=== PATIENT | female | born 1980 | race Caucasian/White ===

== ENCOUNTER 2019-07-30 12:10 | Observation (INO) | payer BC ==
[2019-07-30] MEDS ORDERED: NS 0.9% 1000 ML** 1,000 ML IV.FLUID IV ONE (12:47)
[2019-07-30] MEDS ORDERED: Ketorolac INJ* 30 MG/ML 1 ML VIAL IV ONE (12:47)
[2019-07-30] MEDS ORDERED: Piperacillin/Tazobac ADVAN(*) 3.375 GM in NS 0.9% 100 ML* 100 ML IVPB ONE (12:47)
--- NOTE | 2019-07-30 13:49 | ED ---
Complex/Multi-Sys Presentation - HPI Summary HPI Summary: Patient is a 38 y/o F presenting to [facility] with complaints of fever, LLQ pain, nausea, diarrhea, near syncope, lower left back pain. She states that she was evaluated by PCP Chucky Cordero earlier today, 07/30/19, in her office for URI Sx. Patient has had a dry cough since four days ago, 07/27/19. Patient has had flu shot and denies sore throat, ear ache, dysuria, and increased frequency of urination. She has no UTI Hx. Patient states that she was not noted to have a fever at PCP office, but in ED, she has temp of 101.1 F. She states that around an hour after leaving PCP's office, she developed LLQ pain. Patient reports she became nauseous, diaphoretic, and near syncopal. She states that she had a few BMs and laid on the couch. Shortly afterwards, she went to bathroom again and had an episode of diarrhea. Patient went back to lie down and states that she had onset of rigors and chills. Patient called her , who took her to ED. In the room, patient appears flushed. She notes that she has some left lower back pain that is rated 1-2/10. FMHx of cancer and stroke is reported. She states that she never smoked tobacco, endorses rare alcohol usage, but denies substance usage. 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 Home medications and allergies are reviewed. In room, vitals BP 127/61, o2 99, pulse 96. Home Medications Multivitamins/Minerals TAB* [Theragran/minerals TAB*] 1 tab PO DAILY 07/30/19 [ History Confirmed 07/30/19] Allergies Allergy/AdvReac Type Severity Reaction Status Date / Time Gadolinium-Containing Allergy Hives Verified 07/30/19 12:14 Contrast Medi - History Of Current Complaint Chief Complaint: EDAbdPain Time Seen by Provider: 07/30/19 12:45 Hx Obtained From: Patient Onset/Duration: Gradual Onset, Still Present Timing: Constant Severity Currently: Mild Severity Initially: Moderate Location: Pain At: - LLQ and left lower back Character: Dull Aggravating Factor(s): nothing Alleviating Factor(s): nothing Associated Signs And Symptoms: Positive: Syncope - near syncope, Cough, Nausea, Vomiting, Diarrhea, Back Pain, Fever, Diaphoresis, Other - rigors, and chills Related History: Recent Illness - URI - Allergies/Home Medications Allergies/Adverse Reactions: Allergies Allergy/AdvReac Type Severity Reaction Status Date / Time Gadolinium-Containing Allergy Hives Verified 07/30/19 12:14 Contrast Medi Home Medications: Home Medications Multivitamins/Minerals TAB* [Theragran/minerals TAB*] 1 tab PO DAILY 07/30/19 [ History Confirmed 07/30/19] PMH/Surg Hx/FS Hx/Imm Hx Previously Healthy: No Endocrine/Hematology History: Denies: Hx Diabetes Cardiovascular History: Denies: Hx Hypertension, Hx Pacemaker/ICD History: Denies: Hx Renal Disease Sensory History: Denies: Hx Hearing Aid Neurological History: Reports: Other Neuro Impairments/Disorders - possible multiple sclerosis, being evaluated Psychiatric History: Denies: Hx Panic Disorder - Surgical History Surgical History: Yes Surgery Procedure, Year, and Place: TONSILS, 2 SURGERIES FOR LAZY EYE Infectious Disease History: No Infectious Disease History: Denies: Traveled Outside the [place] in Last 30 Days - Family History Known Family History: Positive: Other - stroke, [place] - Social History Lives: With Family Alcohol Use: Rare Substance Use Type: Reports: None Hx Tobacco Use: No Smoking Status (MU): Never Smoked Tobacco Review of Systems Constitutional: Other - positive - rigors Positive: Fever, Chills, Skin Diaphoresis Negative: Sore Throat, Ear Ache Cardiovascular: Negative Positive: Cough - dry Positive: Abdominal Pain, Vomiting, Diarrhea, Nausea Negative: dysuria, frequency - increased Musculoskeletal: Other - positive - lower left back pain Skin: Negative Positive: Syncope - NEAR Psychological: Normal All Other Systems Reviewed And Are Negative: Yes Physical Exam - Summary Physical Exam Summary: Appearance: Ill-appearing, minimal pain distress, well-nourished, flushed appearance Skin: Warm, color reflects adequate perfusion, dry Head: Normal Head/Face inspection, atraumatic Eyes: Conjunctiva clear ENT: Nasal congestion noted, no pharyngeal erythema or tonsilar enlargement, TM' s clear, mucosal membranes moist Neck: Supple, no nodes, no JVD Respiratory: decreased breath sounds throughout, scattered rhonchi, no respiratory distress Cardio: tachycardic, No murmur, pulses normal, brisk capillary refill Abdomen: Soft, minimal LLQ tenderness noted, no guarding, no rebound, no masses , non-distended, no CVA tenderness Bowel sounds: Present Musculoskeletal: Strength Intact/ROM intact, no calf tenderness, no edema. Psychological: Normal Neuro: Alert, muscle tone normal, no focal deficit Triage Information Reviewed: Yes Vital Signs On Initial Exam: Initial Vitals Temp Pulse Resp BP Pulse Ox 101.1 F 123 16 128/75 99 07/30/19 12:12 07/30/19 12:12 07/30/19 12:12 07/30/19 12:12 07/30/19 12:12 Vital Signs Reviewed: Yes Procedures - Sedation Patient Received Moderate/Deep Sedation with Procedure: No Diagnostics - Vital Signs Vital Signs Temp Pulse Resp BP Pulse Ox 07/30/19 13:16 92 127/61 98 07/30/19 13:15 95 97 07/30/19 12:12 101.1 F 123 16 128/75 99 - Laboratory Result Diagrams: 07/31/19 06:41 07/31/19 06:41 Lab Statement: Any lab studies that have been ordered have been reviewed, and results considered in the medical decision making process. - Radiology CXR Radiology Interpretation Completed By: Radiologist Summary of Radiographic Findings: CXR IMPRESSION: No acute cardiopulmonary process by radiograph. THIS REPORT WAS REVIEWED BY DR. RUIZ. - CT ABD/PEL CT CT Interpretation Completed By: Radiologist Summary of CT Findings: CT ABD/PEL IMPRESSION: No evidence of obstructive uropathy is noted. No other masses or fluid. collections are noted although evaluation is limited due to lack of oral and IV contrast. THIS REPORT WAS REVIEWED BY DR. RUIZ. - EKG 1257 Cardiac Rate: NL - rate of 87 BPM EKG Rhythm: Sinus Rhythm ST Segment: Non-Specific Ectopy: None EKG Comparison: No Significant Change - no changes compared to 10/08/16 EKG Summary of EKG Findings: EKG showed NSR with rate of 87 BPM, nml AV/IV CT, nml QTc, and nml axis. No acute changes. No STEMI. No change c/w 10/08/16. EKG was reviewed and interpreted by Dr. Ruiz. Re-Evaluation - Re-Evaluation First Eval Re-Evaluation Time: 15:23 Change: Improved Comment: Discussed admission with the patient. She is agreeable. No noted source of infection at this time. Complex Multi-Symp Course/Dx Course Of Treatment: Patient is a 38 y/o F presenting to [facility] with complaints of fever, LLQ pain, nausea, diarrhea, near syncope, lower left back pain. She states that she was evaluated by PCP Chucky Cordero earlier today, 07/30/19, in her office for URI Sx. Patient has had a dry cough since four days ago, . Patient has had flu shot and denies sore throat, ear ache, dysuria, and increased frequency of urination. She has no UTI Hx. Patient states that she was not noted to have a fever at PCP office, but in ED, she has temp of 101.1 F. She states that around an hour after leaving PCP's office, she developed LLQ pain. Patient reports she became nauseous, diaphoretic, and near syncopal. She states that she had a few BMs and laid on the couch. Shortly afterwards, she went to bathroom again and had an episode of diarrhea. Patient went back to lie down and states that she had onset of rigors and chills. She notes that she has some left lower back pain that is rated 1-2/10. On physical exam, patient is flushed and ill-appearing, she has nasal congestion. No pharyngeal erythema or tonsilar enlargement. Lungs have scattered rhonchi, abdomen has minimal LLQ tenderness, there is no CVA tenderness. CT ABD/PEL IMPRESSION: No evidence of obstructive uropathy is noted. No other masses or fluid. collections are noted although evaluation is limited due to lack of oral and IV contrast. CXR IMPRESSION: No acute cardiopulmonary process by radiograph. EKG showed NSR with rate of 87 BPM, nml AV/IV CT, nml QTc, and nml axis. No acute changes. No STEMI. No change c/w prior. Bloodwork was obtained. Abnormal values include WBC of 15.7, absolute neuts of 14.8, absolute lymphs of 0.3, INR of 1.10, chloride of 100, CRP 8.1. First lactic was 0.7 and second was 0.5. Beta HCG was negative, trop was negative. Influenza A and B were negative. UA showed 2+ ketones. During ED course, patient received NS 30ml/kg per sepsis protocol, zosyn 3.375gm IV x 1 for sepsis of unknown source, toradol 30 mg IV for pain and fever. 151 - Patient's case was discussed with Dr. Cloud,and Dr. Cloud accepts for admission. - Diagnoses Differential Diagnoses/HQI/PQRI: Metabolic Abnormality, Sepsis, Urinary Tract Infection, Other - pyelonephritis, PID, diverticulitis Provider Diagnoses: Sepsis Is Visit Related: No - Physician Notifications Discussed Care Of Patient With: Jie Cloud Time Discussed With Above Provider: 15:14 Instructed by Provider To: Other - 1514 - Patient's case was discussed with Dr. Cloud, Dr. Cloud accepts for admission. - Critical Care Time Critical Care Time: 30-74 min - 30 minutes CCT Discharge ED - Sign-Out/Discharge Documenting (check all that apply): Patient Departure - admit All imaging exams completed and their final reports reviewed: Yes - Discharge Plan Condition: Stable Disposition: ADMITTED TO [facility] - Billing Disposition and Condition Condition: STABLE Disposition: Admitted to [facility] - Attestation Statements Document Initiated by Jaceyibe: Yes Documenting Scribe: VLADIMIR ROSA Provider For Whom Scribe is Documenting (Include Credential): SOFIA RUIZ MD Scribe Attestation: VLADIMIR Osorio scribed for SOFIA RUIZ MD on 08/18/19 at 2303. Scribe Documentation Reviewed: Yes Provider Attestation: The documentation as recorded by the VLADIMIR bella accurately reflects the service I personally performed and the decisions made by me, SOFIA RUIZ MD Status of Scribe Document: Viewed
[2019-07-30 14:13] LABS: ABS Lymphocytes 0.3 10^3/ul (1.0-4.8); ABS Monocytes 0.6 10^3/ul (0-0.8); ABS Neutrophils 14.8 10^3/ul (1.5-7.7); Eosinophil % 0.1 %; Hematocrit 41 % (35-47); Hemoglobin 13.9 g/dL (12.0-16.0); Lymphocyte % 1.9 %; Mean Corpuscular HGB Conc 34 g/dL (31-36); Mean Corpuscular Hemoglobin 29 pg (27-31); Mean Corpuscular Volume 84 fL (80-97); Mean Platelet Volume 8.7 fL (7.4-10.4); Platelet Count 217 10^3/uL (150-450); Red Blood Count 4.83 10^6 /uL (3.70-4.87); Red Cell Distribution Width 13 % (10-15); White Blood Count 15.7 10^3/uL (3.5-10.8)
[2019-07-30 14:27] LABS: Influenza A Molecular NEGATIVE (Negative); Influenza B Molecular NEGATIVE (Negative)
[2019-07-30 14:29] LABS: Activated Partial Thrombo Time 29.3 seconds (26.0-38.0); INR 1.1 (0.82-1.09)
[2019-07-30 14:29] LABS: Urine Appearance Cloudy; Urine Bilirubin Negative (Negative); Urine Blood Negative (Negative); Urine Color Yellow; Urine Glucose Negative (Negative); Urine Ketones 2+ (Negative); Urine Nitrite Negative (Negative); Urine Protein Negative (Negative); Urine Specific Gravity 1.013 (1.010-1.030); Urine Urobilinogen Negative (Negative)
[2019-07-30 14:39] LABS: ALT 13 U/L (7-52); AST 18 U/L (13-39); Albumin 4.7 g/dL (3.2-5.2); Albumin/Globulin Ratio 1.6 (1-3); Alkaline Phosphatase 54 U/L (34-104); Anion Gap 11 mmol/L (2-11); Blood Urea Nitrogen 14 mg/dL (6-24); CO2 Carbon Dioxide 25 mmol/L (22-32); Calcium 10.1 mg/dL (8.6-10.3); Chloride 100 mmol/L (101-111); Creatine Kinase 75 U/L (10-223); EGFR African American 113.3 (>60); EGFR Non-African American 93.6 (>60); Globulin 2.9 g/dL (2-4); Glucose 98 mg/dL (70-100); Potassium 3.8 mmol/L (3.5-5.0); Sodium 136 mmol/L (135-145); Total Protein 7.6 g/dL (6.4-8.9)
[2019-07-30 14:44] LABS: HCG Pregnancy < 0.60 mIU/mL
[2019-07-30] MEDS ORDERED: Acetaminophen TAB* 325 MG PO PRN (16:12)
[2019-07-30] MEDS ORDERED: Benzonatate CAP* 100 MG PO PRN (16:12)
[2019-07-30] MEDS ORDERED: Ondansetron INJ* 2 MG/ML VIAL IV PRN (16:12)
[2019-07-30] MEDS ORDERED: Cetirizine* 10 MG TAB PO PRN (16:16)
[2019-07-30] MEDS ORDERED: Ibuprofen TAB* 400 MG PO PRN (16:19)
[2019-07-30 17:47] LABS: Erythrocyte Sed Rate 8 mm/Hr (0-19)
[2019-07-30] MEDS: DOXYcycline IV* 100 MG in NS 0.9% 250 ML* 250 ML IVPB SCH (17:58)
--- NOTE | 2019-07-30 18:58 | HP ---
CC: Dr. Steph Hardin * ADMISSION HISTORY AND PHYSICAL: DATE OF ADMISSION: 07/30/19 PRIMARY CARE PROVIDER: Dr. Steph Hardin. MY ATTENDING WHILE IN THE HOSPITAL: Dr. Lorena Lambert.* (DICTATED BY JEFFREY CARO) CHIEF COMPLAINT: Fever, rigors x1 day. HISTORY OF PRESENT ILLNESS: Ms. King is a 38-year-old female with past medical history significant only for idiopathic urticaria and possible multiple sclerosis, not on any treatment, who presented to the emergency department after approximately 1 week ago she began to develop upper respiratory symptoms including increased nasal drainage and stuffiness. This did not improve over the course of the last several days. The patient denies any known sick contacts at his work at [employer] and sees many people throughout the course of a day. The patient over the last 2 days began to have worsening cough and subjective chills. The patient did not have very much production with her cough and did not have any significant shortness of breath. The patient went to her PCP this morning, and on the way home had severe-onset abdominal pain in the left lower quadrant, which she describes as severe and stabbing with the sensation of needing to have a bowel movement. She had 2 small bowel movements, but that did not resolve her abdominal pain and then had diarrhea, which did entirely resolve her abdominal pain. During this episode, she also developed some left lower back pain, which she describes as aching, not reproducible with palpation, not affected by movement, and improving only slightly with pain medication in the emergency department. The patient after she had her episodes of abdominal pain and bowel movements had approximately 35 minutes of shaking of her upper extremities symmetrically bilaterally with a sensation of being chilled. The patient took her temperature at that time and it was about 102. The patient then came into the emergency department. The patient in the emergency department received fluids, Toradol, and Zosyn, and is feeling somewhat better. The patient denies any recent tick bites. The patient does not have any new sexual partners. The patient has no vaginal discharge. The patient last week had an episode of pain with urination and thought she had a UTI, but this has now resolved without any intervention. The patient has no chest pain, no significant shortness of breath , and no swelling in her legs. The patient takes no other medications, except for Xyzal approximately every 2 to 3 days. The patient does go outside frequently, but again has not noticed any tick bites. The patient currently has no abdominal pain and no chest pain, but does still feel very poorly. In the emergency department, the patient was found to have a fever of 101.1, tachycardia at 123. The patient had a fluid bolus, was given Zosyn, had negative CT of her abdomen and pelvis, negative EKG, negative chest x-ray, negative urinalysis, negative flu swab and we were asked to evaluate the patient for admission to the hospital due to concern for fever of unknown origin. PAST MEDICAL HISTORY: Questionable MS, idiopathic urticaria. PAST SURGICAL HISTORY: Two eye surgeries, tonsillectomy. MEDICATIONS: Xyzal 5 mg every 2 to 3 days. ALLERGIES: No known drug allergies. FAMILY HISTORY: The patient's father has hypertension, hyperlipidemia, and had an NV at age 48. The patient's mother is alive and healthy. The patient's grandparents of strokes, heart attacks, and had several types of cancer which she is not able to further expound on. SOCIAL HISTORY: The patient has never smoked. The patient drinks approximately 1 alcoholic beverage a month. The patient denies illicit drug use. 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 The patient is and has 2 children. The patient's surrogate decision maker will be her , Julio King. REVIEW OF SYSTEMS: A 14-point review of systems was reviewed and is negative, except as above in the HPI. PHYSICAL EXAMINATION GENERAL: The patient is a 38-year-old female who appears somewhat pale with flushing of her cheeks, who is sitting in the bed, in no acute distress. VITAL SIGNS: At the time of evaluation, temperature 101.1, pulse rate 103, respiratory rate 20, oxygen saturation 96% on room air, and blood pressure 116/ 65. HEENT: Head: Normocephalic, atraumatic. Sclerae anicteric. No conjunctival injection. Nasal mucosa moist. Oral mucosa moist. No pharyngeal erythema, discharge, or exudate. NECK: Supple, nontender. No lymphadenopathy. No carotid bruits auscultated. No JVD. RESPIRATORY: Clear to auscultation bilaterally. No wheezes, rales, or rhonchi. Good air exchange bilaterally. Positive egophony in the left upper lobe. CARDIAC: Regular rate and rhythm. No clicks, murmurs, gallops, or rubs. Pulses are 2+ in the bilateral dorsalis pedis, posterior tibialis and radial areas. ABDOMEN: Soft, nontender, nondistended. Bowel sounds present and normoactive in all 4 quadrants. No hepatosplenomegaly. No abdominal bruits auscultated. No hepatojugular reflux. GENITOURINARY: No suprapubic or CVA tenderness. NEURO: Cranial nerves II through XII intact. No focal deficits. Alert and oriented x3. PSYCHIATRIC: Pleasant and cooperative. SKIN: Clean, dry, and intact. No rash. DIAGNOSTIC STUDIES/LAB DATA: Laboratory Data: White blood cell count 15.7, hemoglobin 13.9. INR 1.10, aPTT 23.9. Sodium 136, potassium 3.8, chloride 100 , carbon dioxide 25, anion gap 11, BUN 14, creatinine 0.7, glucose 98, lactic acid 0.7, and calcium 9.1. Bilirubin 0.9, AST 18, ALT 13, alkaline phosphatase 54, creatine kinase 75. Troponin-I 0.00, CRP 8.1. Protein 7.6, albumin 4.7, globulin 2.9. Beta hCG less than 0.6. Urine shows 2+ ketones; otherwise, unremarkable Influenza A and B negative. Studies: Abdomen and pelvis CT read as evidence for obstructive uropathy. No other masses or fluid collections are noted, although evaluation is limited due to lack of oral or IV contrast. EKG read as normal sinus rhythm, no ST-segment elevation or depression, no hypertrophy or enlargement, normal axis, QTc of 443. Compared to previous exam , there are no significant changes. Chest x-ray read as no acute cardiopulmonary disease by radiograph. ASSESSMENT AND PLAN: Impression: Ms. King is a 38-year-old female with past medical history significant only for idiopathic urticaria and questionable multiple sclerosis who presents to the emergency department with 1 week of upper respiratory symptoms and 2 weeks of worsening fevers, chills, and cough, who will be admitted to the hospital for evaluation and treatment of fever of unknown origin. 1. Fever of unknown origin, sepsis. The patient meets sepsis criteria with an elevated white blood cell count, elevated heart rate, and elevated temperature. The patient has no initial hypotension, but did receive a fluid bolus of 30 mL per kg. The patient has a normal lactic acid. There is no clear source for the patient's symptoms, though there is some concern for possible pneumonia in this patient. The patient had a negative chest x-ray. The patient had a negative abdomen and pelvis CT and negative urinalysis. The patient no longer has any abdominal pain. The patient has no new sexual partners, no overt symptoms of acute urethritis or other sexually transmitted infections. The patient was tested for gonorrhea and chlamydia in 2013 and this was negative. The patient has no known recent tick bites and no rashes. If the patient does not improve, a tick-borne panel may be considered, but she does check herself frequently. The patient has blood cultures pending. 2. Possible pneumonia. The patient has had an upper respiratory infection for approximately 1 week and has had an abrupt worsening approximately 4 days into her course. This is consistent with double sickening phenomenon possibly related to bacterial superinfection over a viral illness. Given the patient's positive egophony in her left upper lobe, rigors, elevated white blood cell count, and worsening cough, the patient will be admitted to the hospital and started on antibiotics for community-acquired pneumonia including ceftriaxone. At this point, the patient will have pulmonary toileting. The patient will have urinary antigens for Streptococcal pneumoniae and Legionella. The patient is not hypoxic. 3. Idiopathic urticaria. Continue the patient's Xyzal. 4. DVT prophylaxis. SCDs. The patient is low risk. 5. FEN. The patient will have a regular unrestricted diet. The patient does not require any further fluids. 6. Disposition. The patient will be admitted for observation to the hospital. TIME SPENT: Approximately 60 minutes were spent on the admission of this patient, 30 of which were spent [id number] with the patient obtaining history and physical and discussing treatment plan. This plan was discussed with my attending, Dr. Lorena Lambert, and she is in agreement. JEFFREY CARO [id number]/CPS #: [id number] [place]
[2019-07-30] MEDS ORDERED: cefTRIAXone(*) 1 GM in NS 0.9% 50 ML* 50 ML IVPB SCH (20:00)
[2019-07-30] MEDS: guaiFENesin ER TAB 600 MG PO SCH (20:17)
[2019-07-31] MEDS: DOXYcycline IV* 100 MG in NS 0.9% 250 ML* 250 ML IVPB SCH (05:53)
[2019-07-31 07:02] LABS: ABS Eosinophils 0.1 10^3/ul (0-0.6); ABS Monocytes 0.8 10^3/ul (0-0.8); ABS Neutrophils 6.3 10^3/ul (1.5-7.7); Eosinophil % 1.6 %; Hematocrit 36 % (35-47); Hemoglobin 12.2 g/dL (12.0-16.0); Lymphocyte % 11.9 %; Mean Corpuscular HGB Conc 34 g/dL (31-36); Mean Corpuscular Hemoglobin 29 pg (27-31); Mean Corpuscular Volume 86 fL (80-97); Mean Platelet Volume 8.5 fL (7.4-10.4); Platelet Count 189 10^3/uL (150-450); Red Blood Count 4.19 10^6 /uL (3.70-4.87); Red Cell Distribution Width 13 % (10-15); White Blood Count 8.2 10^3/uL (3.5-10.8)
[2019-07-31] MEDS: guaiFENesin ER TAB 600 MG PO SCH (07:16)
[2019-07-31 07:21] LABS: BUN/Creatinine Ratio 15.9 (8-20); C Reactive Protein 27.03 mg/L (<8.01); Calcium 8.4 mg/dL (8.6-10.3); EGFR Non-African American 105.8 (>60); Magnesium 1.7 mg/dL (1.9-2.7); Potassium 3.5 mmol/L (3.5-5.0)
[2019-07-31] MEDS ORDERED: Magnesium Sulfate 2 GM IV* 2 GM/50 ML BAG IVPB ONE (08:05)
[2019-07-31 11:18] VITALS: BP 98/55
--- NOTE | 2019-07-31 23:13 | DS ---
DISCHARGE SUMMARY: DATE OF ADMISSION: DATE OF DISCHARGE: 07/31/19 ADDENDUM: DISPOSITION: Home. CONDITION: Stable. JEFFREY CARO [id number]/CPS #: [id number] MTDD
--- NOTE | 2019-07-31 23:13 | DS ---
ADDENDUM NOW INCLUDED ON THIS REPORT CC: Dr. Steph Hardin * DISCHARGE SUMMARY: DATE OF ADMISSION: 07/30/19 DATE OF DISCHARGE: 07/31/19 PRIMARY CARE PROVIDER: Dr. Steph Hardin. MY ATTENDING WHILE IN THE HOSPITAL: Dr. Lorena Lambert.* (DICTATED BY JEFFREY CARO) PRIMARY DISCHARGE DIAGNOSES: 1. Fever, likely related to viral illness. 2. Sepsis, resolved. 3. Mild diarrhea, likely viral in origin. SECONDARY DISCHARGE DIAGNOSES: 1. Idiopathic urticaria. 2. Neurologic deficits, questionable multiple sclerosis. STUDIES DONE WHILE IN THE HOSPITAL: Abdomen and pelvis CT from 07/30/19 read as no evidence for obstructive uropathy. No other masses or fluid collections are noted. Evaluation is limited due to lack or oral or IV contrast. Chest x- ray from 07/30/19 read as no acute cardiopulmonary process by radiograph. MEDICATIONS AT DISCHARGE: 1. Xyzal 5 mg p.o. daily. 2. Multivitamin 1 tab p.o. daily. 3. Ibuprofen 400 mg q.6 hours as needed. 4. Tylenol 650 mg q.6 hours as needed. New medications at discharge: 1. Tylenol. 2. Ibuprofen. Medications discontinued at discharge: None. HOSPITAL COURSE: This is a brief summary of the patient's presentation. For more details, please see the history and physical from this author on 07/30/19. In brief, the patient is a 38-year-old female who prior to admission had been feeling poorly for approximately 1 week with upper respiratory symptoms including rhinorrhea and nasal congestion. The patient then 2 days before admission began to feel significantly worse. On the day of admission had approximately 35 minutes of rigors with subjective chills, worsening cough and some abdominal pain with diarrhea. The patient was found to have elevated white blood cell count, tachycardia, and fever. The patient, however, did not have any signs of pneumonia. On chest x-ray, there was some concern for egophony on exam, but this resolved. The patient had several other small episodes of diarrhea while in the hospital, which is nonbloody and not associated with abdominal pain. The patient was started on antibiotics for community-acquired pneumonia. However, her white blood cell count quickly returned to normal. Her tachycardia resolved. She had no recurrent fevers. Her blood pressure was on the low end but she was entirely asymptomatic and able to walk around the unit several times. The patient felt entirely back to her baseline. The patient's blood count, which came back negative, as is her strep pneumo and legionella urine antigen. In discussion with the patient that she had no obvious bacterial source for her symptoms, that her symptoms are consistent with a viral mechanism and that she had a minimally elevated CRP and there is a risk associated with antibiotic treatment. Through Shared Decision Making, it was decided to not treat the patient with the ongoing antibiotics with the understanding that if her fevers recurred or shortness of breath got worse that she would follow up with her primary care provider or return to the ED for ongoing antibiotic treatment. The patient was stable and amenable for discharge on 07/31/19. PHYSICAL EXAM ON THE DAY OF DISCHARGE: General: The patient is a 38-year-old female who appears stated age and sitting comfortably in bed, in no acute distress. Vital Signs: At the time of evaluation, temperature 97.7, pulse rate 72, respiratory rate 18, oxygen saturation 98% on room air, blood pressure 98/ 55. HEENT: Head normocephalic, atraumatic. Sclerae anicteric. No conjunctival injection. Nasal mucosa moist. Oral mucosa moist. No pharyngeal erythema, discharge, or exudate. Neck: Supple, nontender. No lymphadenopathy. No carotid bruits auscultated. No JVD. Cardiac: Regular rate and rhythm. No clicks, murmurs, gallops, or rubs. Pulses are 2+ in the bilateral dorsalis pedis, posterior tibialis, and radial areas. Respiratory: Clear to auscultation bilaterally. No wheezing, rales, or rhonchi. Good air exchange bilaterally. Abdomen: Soft, nontender, nondistended. Bowel sounds present and normoactive in all 4 quadrants. No hepatosplenomegaly. No abdominal bruits auscultated. No hepatojugular reflux. Genitourinary: No suprapubic or CVA tenderness. Skin: Clean, dry, and intact. No rashes. Neuro : Cranial nerves II through XII intact. No focal deficits. Alert and oriented x3. Psychiatric: Pleasant and cooperative. DISCHARGE PLAN BY PROBLEM: 1. Fever of unknown origin, likely viral infection. The patient has no other source of bacterial infection for her fever. The patient's symptoms are most consistent with a viral infection, possibly nate-influenza. The patient is feeling back to her baseline. The patient had negative blood cultures. The patient had no ongoing signs of pneumonia and refused repeat chest x-ray in the morning of her discharge for evaluation for pneumonia that may have developed radiologically. Since she was admitted to the hospital, the patient is feeling back to her baseline and as above is amenable to discontinue antibiotic treatment given low probability of bacterial infection. The patient should follow up with her primary care provider or return to the ED for high fevers, chest pain, severe shortness of breath or alarming symptoms. 2. Sepsis, resolved. The patient's sepsis is likely related to a viral infection. All patient's vital signs and laboratory data have returned to normal. 3. Possible MS. The patient should continue to follow up with her outpatient neurologist, Dr. Gavin Li, for evaluation of her neurologic deficits. 4. Idiopathic urticaria. Continue patient's home [facility]. TIME SPENT: Approximately 60 minutes was spent on the discharge of this patient , 30 of which was spent [id number] with the patient obtaining history and physical and discussing treatment plan. ADDENDUM: DISPOSITION: Home. CONDITION: Stable. JEFFREY CARO [id number]/CPS #: [id number] #: [id number] ALEJA
== END 2019-07-31 13:55 | disposition home or self-care (01) ==
LOC: ED 12:10 → MED 16:12
PROVIDERS: ADMIT Internal Medicine; ATTEND Internal Medicine
DX: R50.9 Fever, unspecified (principal); A41.9 Sepsis, unspecified organism; R19.7 Diarrhea, unspecified; L50.1 Idiopathic urticaria; R29.818 Other symptoms and signs involving the nervous system; Z79.899 Other long term (current) drug therapy; Z82.49 Family history of ischemic heart disease and other diseases of the circulatory system; R10.32 Left lower quadrant pain; R55 Syncope and collapse; R11.2 Nausea with vomiting, unspecified; R05 Cough
CPT/HCPCS: 36415; 71046; 74176; 80048; 80053; 81003; 82550; 83605; 83735; 84484; 84702; 85025; 85610; 85652; 85730; 86140; 87040; 87899; 93005; 96361; 96365; 96367; 96375; 99284; A9270-GY; G0378; J0696; J1885; J2543; J3475